=== PATIENT | male | born 1965 | race Caucasian/White ===

== ENCOUNTER → 2017-10-01 | Outpatient (CLI) | payer OTHER | END | disposition home or self-care (01) | LOC: CT 08:49 | PROC: BW21ZZZ Computerized Tomography (CT Scan) of Abdomen and Pelvis (ICD-10-PCS; principal; 2017-10-01) | DX: R10.9 Unspecified abdominal pain (principal) ==

== ENCOUNTER 2017-10-04 13:23 | Emergency (ER) | payer OTHER ==
[~2017-10-04] VITALS: Ht 172.7 cm; Wt 96.6 kg
[2017-10-04 13:45] VITALS: Ht 172.7 cm; Wt 96.6 kg
[2017-10-04 16:03] VITALS: BP 111/68
== END 2017-10-04 16:37 | disposition home or self-care (01) ==
LOC: ED 13:23
DX: M79.1 Myalgia (principal); E78.5 Hyperlipidemia, unspecified
CPT/HCPCS: J1885

== ENCOUNTER 2019-12-27 15:09 | Emergency (ER) | payer SELFPAY ==
[~2019-12-27] VITALS: Ht 177.8 cm; Wt 99.8 kg
[2019-12-27 15:18] VITALS: Ht 177.8 cm; Wt 99.8 kg
[2019-12-27 16:31] LABS: microscopic required? YES; urine erythrocyte NEGATIVE (NEGATIVE)
[2019-12-27 16:51] LABS: BASOPHIL % 0.4 % (0-2); CALCIUM 8.3 mg/dL (8.5-10.1); CARBON DIOXIDE 23.6 mmol/L (21-32); CHLORIDE SERUM 99 mmol/L (98-107); GFR1 > 60 mL/min; GLUCOSE SERUM 202 mg/dL (74-106); PLATELET COUNT 168 x10^3mcL (130-400); POTASSIUM SERUM 3.4 mmol/L (3.5-5.1); RED CELL DISTRIBUTION WIDTH 11.9 % (11.5-14.5); SODIUM SERUM 134 mmol/L (136-145)
[2019-12-27 16:56] LABS: ALKALINE PHOSPHATASE 88 U/L (46-116); ALT/SGPT 223 U/L (16-63); AMYLASE 32 U/L (25-115); AST/SGOT 127 U/L (15-37); BILIRUBIN TOTAL 1.2 mg/dL (0.20-1.00); LIPASE 216 IU/L (73-393); TOTAL PROTEIN, SERUM 7.2 g/dL (6.4-8.2)
[2019-12-27 16:57] LABS: ALBUMIN 3.2 g/dL (3.4-5.0)
[2019-12-27 19:04] VITALS: BP 132/76
== END 2019-12-27 19:04 | disposition home or self-care (01) ==
LOC: ED 15:09
PROVIDERS: Emergency Medicine
DX: N39.0 Urinary tract infection, site not specified (principal); K40.20 Bilateral inguinal hernia, without obstruction or gangrene, not specified as recurrent
CPT/HCPCS: 36415; Q9967